=== PATIENT | female | born 2000 | race Caucasian/White ===

== ENCOUNTER 2021-05-11 17:27 | Emergency (ER) | payer OTHER ==
[2021-05-11] MEDS ORDERED: BACITRACIN ZINC OINT 1 PACKET TOP STA (19:24)
[2021-05-11] MEDS ORDERED: BUFFERED LIDOCAINE 10 ML SYRINGE SUBQ STA (19:24)
[2021-05-11] MEDS ORDERED: TETANUS/DIPHTHERIA/PERTUSSIS 0.5 ML SYRINGE IM ONE (19:31)
[2021-05-11 20:04] VITALS: BP 119/78
--- NOTE | 2021-05-11 20:04 | ED Physician Documentation ---
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 She does endorse some distal tip numbness. Uncertain of last tetanus. She reportedly had very difficult time getting bleeding to stop at home for a number of hours therefore she presents to the ER. Review of Systems Constitutional: reports: Reviewed and negative Ears: reports: Reviewed and negative Cardiac: reports: Reviewed and negative Respiratory: reports: Reviewed and negative Skin: reports: Laceration (s) (Left radial side distal index finger.) PD PAST MEDICAL HISTORY - Past Medical History Past Medical History: No - Past Surgical History Past Surgical History: No - Present Medications Home Medications: Ambulatory Orders Medication Instructions Recorded Confirmed No Known Home Medications 05/11/21 05/11/21 - Allergies Allergies/Adverse Reactions: Allergies Allergy/AdvReac Type Severity Reaction Status Date / Time No Known Drug Allergies Allergy Verified 05/11/21 17:34 - Social History Does the pt smoke?: No Smoking Status: Never smoker Does the pt drink ETOH?: Yes Does the pt have substance abuse?: No - Immunizations Immunizations are current?: Yes PD ED PE EXPANDED - Extremities Extremities: Left finger(s) (Macerated lacerations left distal tip index finger radial side that approximate the nailbed but do not injure it. Able to flex and extend against resistance at DIP.) Results - Vitals Vitals: Vital Signs - 24 hr 05/11/21 17:35 Temperature 37.0 C Heart Rate 110 H Respiratory 16 Rate Blood Pressure 148/70 H O2 Saturation 99 Oxygen O2 Source Room air Procedures - Laceration (location) Left index finger Wound type: Irregular, Into muscle, Clean Neurovascular status: Motor intact, Vascular intact Tendon involvement: Tendon intact Anesthesia: Lidocaine 1% Wound preparation: Chlorhexadine, Irrigated copiously NS Skin layer closure: Interrupted, Size #-0 - enter number (4), Sutures - enter # (5) Other: Patient tolerated well, No complications, Tetanus UTD PD MEDICAL DECISION MAKING - ED course Complexity details: reviewed results, re-evaluated patient, d/w patient ED course: 18-year-old female presents emergency department for evaluation of left index finger lacerations at the distal tip 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 These lacerations macerated the medial side of the finger. 5 sutures were placed into the finger to help approximate the wounds and Control the bleeding. Tetanus was updated today. Routine wound care and emergent return precautions were discussed. Departure - Departure Disposition: 01 Home, Self Care Clinical Impression: Laceration of index finger Qualifiers: Encounter type: initial encounter Damage to nail status: without damage Foreign body presence: without foreign body Laterality: left Qualified Code(s): S61.211A - Laceration without foreign body of left index finger without damage to nail, initial encounter Condition: Stable Record reviewed to determine appropriate education?: Yes Instructions: ED Laceration All Comments: Unfortunately the lacerations on your index finger because what we would describe is a macerated wound. We did place 5 sutures into the finger to help control the bleeding. In 24 hours you can remove your dressing gently wash with warm soap and water and apply antibiotic ointment. It is likely that the distal nerve of this finger was injured. Your tetanus was updated today and is good for the next 7 to 10 years. At any point you have concerns of infection, fevers, redness, milky drainage or red streaking please return immediately to the ER for a second evaluation.
== END 2021-05-11 20:09 | disposition home or self-care (01) ==
LOC: ED 17:27
DX: S61.211A Laceration without foreign body of left index finger without damage to nail, initial encounter (principal); W27.4XXA Contact with kitchen utensil, initial encounter; Y93.G1 Activity, food preparation and clean up; Z23 Encounter for immunization
CPT/HCPCS: 12042; 90471; 90715; 99281; 99283; A9270